=== PATIENT | male | born 1935 | race Caucasian/White ===

== ENCOUNTER 2016-12-27 12:04 | Outpatient (CLI) | payer MEDICARE, BC ==
--- NOTE | 2016-12-27 15:47 | RAD ---
PA AND LATERAL VIEWS OF CHEST: Date: 12/27/16 HISTORY: Cough. FINDINGS: Comparison made with exam of 05/15/13. Changes of median sternotomy are again seen. The heart size is borderline. There is continued elevat ion of the right hemidiaphragm. No confluent areas of consolidation, pneumothorax, or pleural effusi ons are seen. There are mild degenerative changes in the spine. IMPRESSION: No radiographic evidence of acute cardiopulmonary process. POS: [facility]
--- OUTSIDE RECORDS SUMMARY | 2016-12-29 20:11 | XMS | Clinical Summary ---
:1935 Author Organization [facility] Address [address] [place] [address] Phone Care Team Providers Name Role Phone , Primary Care Provider Unavailable Allergies Not on File Current Medications Not on file Active Problems Not on file Social History Tobacco Use Types Packs/Day Years Used Date Never Assessed Sex Assigned at Date Recorded Not on file Last Filed Vital Signs Not on file Plan of Treatment Not on file Results Not on filefrom Last 3 Months
== END 2016-12-27 12:05 | disposition home or self-care (01) ==
LOC: SCSRAD 12:04
PROVIDERS: ATTEND Family Medicine
DX: J40 Bronchitis, not specified as acute or chronic (principal)
CPT/HCPCS: 71020

== ENCOUNTER 2018-06-09 14:38 | Emergency (ER) | payer MEDICARE, BC ==
--- NOTE | 2018-06-09 15:23 | CT ---
FExam: Head CT without contrast HISTORY: Status post fall. COMPARISON: 03/15/2015 FINDINGS: Hemorrhage: No intraparenchymal hemorrhage or extra-axial hematoma. Brain parenchyma: Brain volume, age-appropriate. Cortical hightower-white matter differentiation is preser rock. White matter hypodensities due to chronic small vessel ischemic change. No mass effect or midlin e shift Ventricular system: Ventricles and sulci are patent and symmetric. Calvarium: Intact. Sinuses and mastoid air cells: Adequate aeration. IMPRESSION: No intracranial post traumatic sequelae
[2018-06-09] MEDS ORDERED: Ondansetron PF 4 MG/2 ML Vial ONE (15:41)
--- NOTE | 2018-06-09 15:51 | RAD ---
SINGLE VIEW PELVIS: Date: 06/09/18 COMPARISON: None. HISTORY: Left hip pain. FINDINGS: Single view of the pelvis shows the patient to be status post bilateral hip arthroplasties. No periha rdware lucency or fracture is seen. Heterotopic bone formation is seen along the right femur, which m ay cause some joint space narrowing between the femur and the acetabular component of the prosthesis. No significant hypertrophic bone formation is seen on the left. IMPRESSION: Status post bilateral hip arthroplasties without acute osseous abnormality. POS: [facility]
--- NOTE | 2018-06-09 15:52 | RAD ---
2 VIEWS LEFT HIP: Date: 06/09/18 COMPARISON: 07/16/17. HISTORY: Left hip pain. FINDINGS: Two views of the left hip show the patient to be status post left hip arthroplasty without perihardwa re lucency or fracture. Overlying soft tissue swelling is seen. IMPRESSION: No evidence of acute osseous abnormality. POS: [facility]
[2018-06-09 16:04] LABS: #Basophils 0.1 thou/uL (0.0-0.2); #Eosinphils 0.2 thou/uL (0.0-0.7); #Monocytes 0.8 thou/uL (0.11-0.59); #Neutrophils 4.1 thou/uL (1.40-6.50); %Basophils 1.2 % (0.0-1.0); %Eosinophils 3.3 % (0.0-10.0); %Lymphocytes 15.7 % (21.0-51.0); %Monocytes 13.6 % (0.0-10.0); %Neutrophils 66.2 % (42.0-75.0); Hemoglobin 12.9 g/dL (14.0-18.0); Mean Corpuscular HGB CONC 32.3 g/dL (32.0-36.0); Mean Corpuscular Hemoglobin 30.9 pg (27.0-31.0); Mean Corpuscular Volume 95.7 fL (78.0-98.0); Mean Platelet Volume 9.7 fL (7.4-10.4); Platelet Count 111 thou/uL (130-400); RBC Distribution Width 13.1 % (11.5-14.5); Red Blood Cell (RBC) Count 4.18 mill/uL (4.70-6.10); White Blood Cell (WBC) Count 6.2 thou/uL (4.8-10.8)
[2018-06-09 16:18] LABS: ALT (SGPT) 9 U/L (8-55); AST (SGOT) 15 U/L (5-34); Alkaline Phosphatase 98 U/L (40-150); Anion Gap 10 mmol/L (10-20); BUN (Urea Nitrogen) 26 mg/dL (8.4-25.7); Bilirubin, Total 1.6 mg/dL (0.2-1.2); CK (CPK) 59 U/L (30-200); Calc. Creatinine Clearance 0 mL/min (70-130); Calcium 9.3 mg/dL (7.8-10.44); Carbon Dioxide 25 mmol/L (23-31); Chloride 106 mmol/L (98-107); Estimated GFR-MDRD 60; Globulin 3.3 g/dL (2.4-3.5); Glucose 105 mg/dL (83-110); Potassium 4.2 mmol/L (3.5-5.1); Protein, Total 7.3 g/dL (5.8-8.1); Sodium 137 mmol/L (136-145)
[2018-06-09 16:21] LABS: Platelet Morphology Comment Appears Decreased; RBC Morphology Normal
[2018-06-09] MEDS ORDERED: Ketorolac Tromethamine 30 MG/ML VIAL ONE (17:28)
[2018-06-09] MEDS ORDERED: Acetaminophen/Codeine 30-300mg Tablet ONE (17:29)
--- NOTE | 2018-06-09 18:55 | CT ---
CT PELVIS NONCONTRAST: 06/09/18 HISTORY: 83-year-old male status post acute pelvic trauma due to fall. FINDINGS: Bilateral metallic acetabular cups articulate with metallic femoral head and neck prostheses with denise g femoral stems that extend into the femoral shafts, right side longer than left. The metallic hardwa re causes streak artifact, obscuring significant portions of the surrounding the soft tissues and por tions of the intrapelvic contents. Large amount of stool in the rectum distending the rectum. Urinary bladder is distended. Base of urinary bladder is obscured by the streak artifact. No acute pelvic fr acture is identified. No dislocation. Severe hypertrophic bridging osteophytes at lumbosacral junctio n protruding into the prevertebral space, and at posterior elements. These may represent sequela of p rior healed fractures and/or DISH. No obvious free fluid identified. IMPRESSION: 1. Status post bilateral total hip replacement arthroplasty. 2. No displaced acute pelvic fracture identified. 3. Stool-distended rectum. POS: [facility]
== END 2018-06-09 19:28 | disposition home or self-care (01) ==
LOC: ERS 14:38
DX: S70.02XA Contusion of left hip, initial encounter (principal); S00.01XA Abrasion of scalp, initial encounter; F03.90 Unspecified dementia, unspecified severity, without behavioral disturbance, psychotic disturbance, mood disturbance, and anxiety; I48.91 Unspecified atrial fibrillation; W19.XXXA Unspecified fall, initial encounter
CPT/HCPCS: 70450; 72170; 72192; 80053; 82550; 84484; 85025; 96374; 96375; J1885; J2405

== ENCOUNTER 2021-04-02 19:47 | Emergency (ER) | payer MEDICARE, BC | END 2021-04-02 22:15 | disposition home or self-care (01) | LOC: ERS 19:47 | DX: S20.211A Contusion of right front wall of thorax, initial encounter (principal); S00.93XA Contusion of unspecified part of head, initial encounter; W19.XXXA Unspecified fall, initial encounter; I10 Essential (primary) hypertension; I25.10 Atherosclerotic heart disease of native coronary artery without angina pectoris; I48.91 Unspecified atrial fibrillation; E78.5 Hyperlipidemia, unspecified; I25.2 Old myocardial infarction; Z86.73 Personal history of transient ischemic attack (TIA), and cerebral infarction without residual deficits; K21.9 Gastro-esophageal reflux disease without esophagitis; M19.90 Unspecified osteoarthritis, unspecified site | CPT/HCPCS: 70450; 72170 ==

== ENCOUNTER 2021-04-03 22:02 | Emergency (ER) | payer MEDICARE, BC ==
[2021-04-03] MEDS ORDERED: Boostrix 0.5 ML (Tdap) VIAL ONE (22:23)
[2021-04-03 23:20] LABS: Bilirubin Negative (Negative); Blood, Urine Negative (Negative); Clarity Clear (Clear); Glucose, Urine (Dipstick) Normal (Negative); Ketone, Urine Negative (Negative); Leukocyte Negative Leu/uL (Negative); Nitrite Negative (Negative); Protein, Urine (Dipstick) Negative (Neg-Trace); Specific Gravity, Urine 1.018 (1.002-1.036); Urobilinogen 6 mg/dL (Less than 2); pH, Urine 6.5 (5.0-9.0)
== END 2021-04-04 01:02 ==
LOC: ERS 22:02
DX: S00.83XA Contusion of other part of head, initial encounter (principal); S80.212A Abrasion, left knee, initial encounter; S80.211A Abrasion, right knee, initial encounter; I48.91 Unspecified atrial fibrillation; I25.10 Atherosclerotic heart disease of native coronary artery without angina pectoris; E78.5 Hyperlipidemia, unspecified; I10 Essential (primary) hypertension; I25.2 Old myocardial infarction; Z86.73 Personal history of transient ischemic attack (TIA), and cerebral infarction without residual deficits; Z79.899 Other long term (current) drug therapy; W19.XXXA Unspecified fall, initial encounter
CPT/HCPCS: 51701; 70450; 70486; 72125; 72170; 81003; 87086; 90471; 90715